=== PATIENT | female | born 1970 | race African-American/Black ===

== ENCOUNTER 2020-12-06 21:48 | Observation (INO) ==
[2020-12-06 22:26] LABS: Basophils # 0.1 10*3/uL (0.0-0.2); Basophils % 0.6 % (0.0-0.8); Eosinophils # 0.2 10*3/uL (0.0-0.87); Eosinophils % 2.4 % (0.00-10.9); Hematocrit 42.6 VOL% (35.7-47.0); Hemoglobin 14.3 GM/DL (12.0-16.0); Immature Granulocytes % 0.3 %; Immature Granulocytes Absolute 0.03 #; Lymphocytes # 2.7 10*3/uL (1.4-4.0); Lymphocytes % 31.1 % (21.3-54.2); Mean Corpuscular HGB Conc 33.6 GM/DL (32-36); Mean Corpuscular Volume 86.4 FL (87-102); Mean Platelet Volume 9.7 FL (9.6-12.0); Monocytes % 7.2 % (1.7-12.7); Neutrophils % 58.4 % (38.7-73.9); Platelet Count 294 T/CUMM (130-400); Red Blood Count 4.93 MC/CUMM (3.8-5.5); Red Cell Distribution Width 12.8 % (9.3-17.3); White Blood Count 8.8 T/CUMM (4-12)
[2020-12-06 23:25] LABS: Alanine Aminotransferase 17 U/L (13-56); Albumin 3.5 G/DL (3.4-5.0); Alkaline Phosphatase 118 U/L (45-117); Aspartate Amino Transferase 12 U/L (0-37); Bilirubin,Total < 0.39 MG/DL (0.2-1.0); Blood Urea Nitrogen 11 MG/DL (7-18); Calcium 9.1 MG/DL (8.5-10.1); Carbon Dioxide 25 MMOL/L (21-32); Estimated Glom Filtration Rate 145 ML/MIN; Glucose 297 MG/DL (74-106); Osmolality,Calculated 277.2 MOS/KG (273-304); Sodium 134 MMOL/L (136-145); Total Protein 7.7 G/DL (6.4-8.2)
[2020-12-06] MEDS ORDERED: ASPIRIN 325 MG TABLET PO STA (23:53)
[2020-12-06] MEDS ORDERED: hydrALAZINE 20 MG/1 ML VIAL IV STA (23:53)
[2020-12-06] MEDS ORDERED: NITROGLYCERIN 2% OINT 1 INCH/GM PACK TOP STA (23:53)
[2020-12-06] MEDS ORDERED: ALUM/MAG/SIMETH/LIDO VISC 1:1 30 ML BOTTLE PO STA (23:53)
[2020-12-06] MEDS ORDERED: ONDANSETRON 4 MG/2 ML VIAL IV STA (23:53)
[2020-12-06] MEDS ORDERED: MORPHINE 4 MG/1 ML VIAL IV STA (23:53)
[2020-12-07] MEDS ORDERED: ONDANSETRON 4 MG/2 ML VIAL IV PRN (01:18)
[2020-12-07] MEDS ORDERED: GLUCAGON 1 MG VIAL IM PRN (01:18)
[2020-12-07] MEDS ORDERED: hydrALAZINE 20 MG/1 ML VIAL IV PRN (01:18)
[2020-12-07] MEDS ORDERED: MORPHINE 4 MG/1 ML VIAL IV PRN (01:18)
[2020-12-07] MEDS ORDERED: NICOTINE 21 MG/24 HR PATCH TRANSDERM PRN (01:18)
[2020-12-07] MEDS ORDERED: DEXTROSE 50% 25 GM/50 ML VIAL IV PRN (01:18)
[2020-12-07] MEDS ORDERED: ACETAMINOPHEN 325 MG TABLET PO PRN (01:18)
[2020-12-07 01:56] LABS: Risk Ratio 4.2; Thyroid Stimulating Hormone 1.66 uIU/ml (0.358-3.74); VLDL Cholesterol 59.4 MG/DL
[2020-12-07 05:18] LABS: Barbiturates Screen,Urine Negative (Negative); Benzodiazepines Screen,Urine Negative (Negative); Cannabinoid Screen,Urine Negative (Negative); Opiate Screen,Urine Positive (Negative); Phencyclidine Screen,Urine Negative (Negative)
[2020-12-07] MEDS ORDERED: ENOXAPARIN 40 MG/0.4 ML SYRINGE SUBCUT SCH (09:00)
[2020-12-07] MEDS ORDERED: PANTOPRAZOLE 40 MG TABLET PO SCH (09:00)
[2020-12-07] MEDS: INSULIN REGULAR 100 UNIT/ML SUBCUT SCH ×3 (09:15→16:28)
[2020-12-07] MEDS ORDERED: LISINOPRIL/HCTZ 20-12.5 MG TABLET PO SCH (14:40)
[2020-12-07 16:28] VITALS: BP 142/68
== END 2020-12-07 17:15 | disposition home or self-care (01) ==
LOC: N.ED 21:48 → N.EDINP 21:48 → N.TELES 12-07 03:44
PROVIDERS: ADMIT Internal Medicine Geriatric Medicine; ATTEND Internal Medicine Geriatric Medicine